=== PATIENT | male | born 1995 | race Caucasian/White ===

== ENCOUNTER 2018-11-25 19:54 | Emergency (ER) | payer SELFPAY ==
[~2018-11-25] VITALS: Ht 165.1 cm; Wt 67.6 kg
[2018-11-25 19:59] VITALS: BP 145/98; Ht 165.1 cm; Wt 67.6 kg
== END 2018-11-25 22:31 | disposition left against medical advice (07) ==
LOC: ED 19:54
DX: Z53.21 Procedure and treatment not carried out due to patient leaving prior to being seen by health care provider (principal)